=== PATIENT | female | born 1950 | race Caucasian/White ===

== ENCOUNTER 2020-09-17 16:25 | Outpatient (CLI) | payer MEDICARE ==
[2020-09-18 01:19] LABS: SARS-CoV-2 PCR by NAA Not Detected (NotDetected)
== END 2020-09-17 16:26 | disposition home or self-care (01) ==
LOC: LABBT 16:25
PROVIDERS: ATTEND Ophthalmology Retina Specialist
DX: Z01.812 Encounter for preprocedural laboratory examination (principal); H35.342 Macular cyst, hole, or pseudohole, left eye; Z20.822 Contact with and (suspected) exposure to COVID-19
CPT/HCPCS: U0003; U0005; 87635

== ENCOUNTER 2020-09-20 09:01 | Day surgery (SDC) | payer MEDICARE ==
[2020-09-19 14:25] VITALS: BMI 28.5
[~2020-09-20 09:01] MED LIST: Fentanyl 100 MCG/2 ML VIAL ONE; Fluorouracil 100 MG, Enoxaparin Sodium 25 MG, EPINEPHrine 0.3 MG in Ophthalmic Irrigati... IRR SCH; Midazolam HCl 2 mg/2 ml Vial ONE; PROPOFOL 20 ML ONE
[2020-09-20] MEDS ORDERED: Cyclopentolate 1% Ophth Drops 15 ML BOT ONE (09:42)
[2020-09-20] MEDS ORDERED: Phenylephrine 2.5% Ophth Soln 5 ML BOT ONE (09:43)
[2020-09-20] MEDS ORDERED: Lidocaine 1% PF 5 ML VIAL ONE (11:06)
[2020-09-20] MEDS ORDERED: Bupivacaine PF 0.75% SDV 10 ML ONE (11:06)
[2020-09-20] MEDS ORDERED: Maxitrol 0.1% Opth Oint 3.5 GM TUBE ONE (11:06)
[2020-09-20] MEDS ORDERED: Triamcinolone 40 MG/ML VIAL ONE (11:06)
[2020-09-20] MEDS ORDERED: Indocyanine Green 25 MG/10 ML VIAL ONE (11:06)
[2020-09-20] MEDS ORDERED: Lidocaine 4% PF 5 ML AMP ONE (11:06)
[2020-09-20] MEDS ORDERED: CEFAZOLIN 1 GM VIAL ONE (11:06)
== END 2020-09-20 12:16 | disposition home or self-care (01) ==
LOC: SDC 09:01
PROVIDERS: ATTEND Ophthalmology Retina Specialist
PROC: 08T53ZZ Resection of Left Vitreous, Percutaneous Approach (ICD-10-PCS; principal; 2020-09-20)
PROC: 08NF3ZZ Release Left Retina, Percutaneous Approach (ICD-10-PCS; 2020-09-20)
DX: H35.342 Macular cyst, hole, or pseudohole, left eye (principal); I10 Essential (primary) hypertension; Z79.01 Long term (current) use of anticoagulants; Z79.84 Long term (current) use of oral hypoglycemic drugs; Z79.899 Other long term (current) drug therapy
CPT/HCPCS: 67025; J0171; J0690; J1650; J2250; J2704; J3010; J3301; J3490; J9190